=== PATIENT | male | born 1980 ===

== ENCOUNTER 2016-10-26 03:15 | Emergency (ER) | payer SELFPAY ==
[2016-10-26 03:49] VITALS: BMI 25.8
[2016-10-26 03:51] VITALS: TEMP 100.2
--- NOTE | 2016-10-26 04:12 | ED PDOC ---
Arrival/HPI - General Chief Complaint: ENT Problem Time Seen by Provider: 10/26/16 04:09 Historian: Patient - History of Present Illness Narrative History of Present Illness (Text): 10/26/16 04:09 Abner Rai is a 36 year old male, with no significant past medical history, who presents to the ED accompanied by friend complaining of bilateral ear pain, greater on the left, since yesterday. Patient also reports associated cough. Patient notes he has been taking Ampicillin with no significant relief. Patient denies any chills, chest pain, shortness of breath, nausea, vomiting, diarrhea, urinary symptoms, back pain, neck pain, headache, dizziness, or any other complaints. Time/Duration: Other (yesterday) Symptom Onset: Gradual Symptom Course: Unchanged Activities at Onset: Rest, Light Context: Home Past Medical History - Provider Review Nursing Documentation Reviewed: Yes - Psychiatric Hx Substance Use: No - Anesthesia Hx Anesthesia: No Family/Social History - Physician Review Nursing Documentation Reviewed: Yes Family/Social History: No Known Family HX Smoking Status: Never Smoked Hx Alcohol Use: No Hx Substance Use: No Allergies/Home Meds Allergies/Adverse Reactions: Allergies No Known Allergies Allergy (Verified 10/26/16 03:49) Review of Systems - Physician Review All systems were reviewed & negative as marked: Yes - Review of Systems Constitutional: Normal. absent: Fevers Eyes: Normal ENT: Other (+bilateral ear pain) Respiratory: Cough. absent: SOB Cardiovascular: Normal. absent: Chest Pain Gastrointestinal: Normal. absent: Abdominal Pain, Diarrhea, Vomiting Genitourinary Male: Normal. absent: Dysuria, Frequency, Hematuria, Urinary Output Changes Musculoskeletal: Normal. absent: Back Pain, Neck Pain Skin: Normal. absent: Rash Neurological: Normal. absent: Headache, Dizziness Endocrine: Normal Hemo/Lymphatic: Normal Psychiatric: Normal Physical Exam Vital Signs Reviewed: Yes Vital Signs Temp Pulse Resp BP Pulse Ox 10/26/16 05:57 75 17 139/70 98 10/26/16 03:51 100.2 F H 118 H 18 127/96 H 97 Temperature: Febrile Blood Pressure: Normal Pulse: Regular Respiratory Rate: Normal Appearance: Positive for: Well-Appearing, Non-Toxic, Comfortable Pain Distress: None Mental Status: Positive for: Alert and Oriented X 3 - Systems Exam Head: Present: Atraumatic, Normocephalic Pupils: Present: PERRL Extroacular Muscles: Present: EOMI Conjunctiva: Present: Normal Ears: Present: Erythema (Bilateral TM injection, greater on the left), Normal Canal, TM Bulging (Mild bilateral TM bulging, greater on left) Mouth: Present: Moist Mucous Membranes Neck: Present: Normal Range of Motion Respiratory/Chest: Present: Clear to Auscultation, Good Air Exchange. No: Respiratory Distress, Accessory Muscle Use Cardiovascular: Present: Regular Rate and Rhythm, Normal S1, S2. No: Murmurs Abdomen: Present: Normal Bowel Sounds. No: Tenderness, Distention, Peritoneal Signs Upper Extremity: Present: Normal Inspection. No: Cyanosis, Edema Lower Extremity: Present: Normal Inspection. No: Edema Neurological: Present: GCS=15, CN II-XII Intact, Speech Normal Skin: Present: Warm, Dry, Normal Color. No: Rashes Psychiatric: Present: Alert, Oriented x 3, Normal Insight, Normal Concentration Medical Decision Making ED Course and Treatment: 10/26/16 04:09 Impression: 36 year old male complaining of bilateral ear pain, greater on the left, and cough since yesterday. Differential Diagnosis include but are not limited to: otitis media vs. URI Plan: -- Biaxin -- Percocet -- Reassess and disposition Progress Notes: 10/26/16 05:22 On re-evaluation, the patient feels better and is in no acute distress. I have discussed the results and plan with the patient, who expresses understanding. Patient in agreement with plan to discharged home. Patient is stable for discharge. Patient was instructed to follow up with physician/clinic in 1-2 days or return if symptoms worsen or new concerning symptoms arise. Re-evaluation Time: 05:23 Reassessment Condition: Re-examined, Improved - Medication Orders Current Medication Orders: Discontinued Medications Clarithromycin (Biaxin Filmtab) 500 mg PO STAT STA PRN Reason: Protocol Stop: 10/26/16 04:13 Last Admin: 10/26/16 05:00 Dose: 500 MG Oxycodone/Acetaminophen (Percocet 5/325 Mg Tab) 1 tab PO STAT STA Stop: 10/26/16 04:14 Last Admin: 10/26/16 04:38 Dose: 1 TAB - Scribe Statement The provider has reviewed the documentation as recorded by the Scribe Ira Berto Provider Attestation: All medical record entries made by the Laurenceibdonna were at my direction and personally dictated by me. I have reviewed the chart and agree that the record accurately reflects my personal performance of the history, physical exam, medical decision making, and the department course for this patient. I have also personally directed, reviewed, and agree with the discharge instructions and disposition. Disposition/Present on Arrival - Present on Arrival Any Indicators Present on Arrival: No History of DVT/PE: No History of Uncontrolled Diabetes: No Urinary Catheter: No History of Decub. Ulcer: No History Surgical Site Infection Following: None - Disposition Have Diagnosis and Disposition been Completed?: Yes Diagnosis: Otitis media of left ear Disposition: HOME/ ROUTINE Disposition Time: 05:24 Discharge Instructions (ExitCare): Otitis Media (ED) Prescriptions: Clarithromycin [Biaxin Filmtab] 500 mg PO BID #20 tab oxyCODONE/Acetaminophen [Percocet 5/325 mg Tab] 1 ea PO QID #6 tab
[2016-10-26] MEDS ORDERED: Oxycodone/Acetaminophen 5/325 mg Tab PO STA (04:13)
[2016-10-26 05:58] VITALS: BP 139/70; PULSE 75; RESP 17; O2SAT 98
== END 2016-10-26 05:57 | disposition home or self-care (01) ==
LOC: ED 03:15
DX: H66.92 Otitis media, unspecified, left ear (principal)